=== PATIENT | male | born 1935 | race Caucasian/White ===

== ENCOUNTER 2017-07-09 14:18 | Outpatient (CLI) | payer MEDICARE, BC | END 2017-07-09 14:19 | disposition home or self-care (01) | LOC: LABBT 14:18 | PROVIDERS: ATTEND Neurological Surgery | DX: Z01.818 Encounter for other preprocedural examination (principal); M48.06 Spinal stenosis, lumbar region ==

== ENCOUNTER 2017-07-17 05:28 | Day surgery (SDC) | payer MEDICARE, BC ==
[2017-07-09 14:26] VITALS: BMI 29.8
--- NOTE | 2017-07-16 16:09 | HP ---
HISTORY OF PRESENT ILLNESS: Mr. Olvera is an 81-year-old male referred to us by Dr. Knight's of [facility] for bilateral lower extremity weakness and mostly left lower extremity L5 radicular pain. He h as bilateral hip pain. He has a history of hip replacement on the right and no significant arthropa thy on the left, but his biggest concern is that over the last 6 months, he has essentially lost the ability to walk secondary to weakness in his bilateral legs. He has had [address] Glendy humphrey. He feels like it helped his pain, but this weakness is actually worsening because of that an d he is here for surgical discussion. MRI from [facility] reveals profound central canal s tenosis, mostly at L1-L2, L2-L3, and L3-L4. He has two disk herniations at L3-L4 with inferior migr ation at L4-L5 with superior migration, goes to the right with an impact L3 and L4 nerve roots as we ll as the L5 nerve root, mostly on the right. He also has scattered foraminal stenosis, all these t ogether, I think set well with the symptoms that he describes. PAST MEDICAL HISTORY: Coronary artery disease, hyperlipidemia, depression, anxiety, BPH, hypertensi on, and seasonal allergies. CURRENT MEDICATIONS: Tylenol Extra Strength, aspirin, atorvastatin, Celebrex, citalopram, finasteri de, latanoprost, lisinopril, loratadine, tamsulosin, and tramadol. ALLERGIES: No known drug allergies. PAST SURGICAL HISTORY: Left knee surgery, right hip replacement, bilateral knee replacement, heart surgery, cataract surgery, aortic valve, carotid artery surgery, right shoulder partial replacement. PHYSICAL EXAMINATION: The patient is in a wheelchair. He has 4/5 strength in bilateral hip flexion . He has 5/5 strength in bilateral knee extension. He has 5/5 strength in left knee flexion and 4/ 5 strength in right knee flexion. He has 4/5 strength bilaterally in dorsiflexion of the ankles, th en 5/5 strength in plantarflexion of the ankles. Upper extremities motor strength is fine. ASSESSMENT: Lumbar radiculopathy. PLAN: I discussed the surgical approach with the patient, Dr. Porter then met with the patient and r eviewed his imaging and advocated for a L1-L5 decompression. He explained to the patient the risks, benefits, and alternatives to the procedure. The patient expressed understanding and would like to move forward with surgery as discussed. I do believe that the patient is mentally competent and ca pable of making medical decisions for himself and we will move forward with surgery as discussed.
[2017-07-17] MEDS ORDERED: Clindamycin/D5W 900 mg/50 ml Premix Bag ONE (06:27)
[2017-07-17] MEDS ORDERED: Levofloxacin 500 mg/D5W 100 ml Premix Bag ONE (06:27)
[2017-07-17] MEDS ORDERED: Thrombin 5000 UNITS/5 ML VIAL ONE (06:27)
[2017-07-17] MEDS ORDERED: Phenylephrine 10 MG/NS 250 ML 0 ML ONE (06:47)
[2017-07-17] MEDS ORDERED: Albumin 5% 500 ML ONE (06:47)
[2017-07-17] MEDS ORDERED: Fentanyl 250 MCG/5 ML VIAL ONE (06:57)
[2017-07-17] MEDS ORDERED: ePHEDrine/0.9% NaCl/PF SYRINGE 50 mg/10 ml ONE (07:08)
[2017-07-17] MEDS ORDERED: Lidocaine 2% PF 10 ML AMP (For Epidural Use) ONE (07:08)
[2017-07-17] MEDS ORDERED: Ondansetron HCl/PF 4 MG/2 ML Vial ONE (07:08)
[2017-07-17] MEDS ORDERED: Propofol 200 MG/20 ML VIAL ONE ×2 (07:08)
[2017-07-17] MEDS ORDERED: Glycopyrrolate 0.2 MG/ML 5 ML SYRINGE ONE (07:08)
[2017-07-17] MEDS ORDERED: Vecuronium 10 MG VIAL ONE (07:08)
[2017-07-17] MEDS ORDERED: Dexamethasone 20 MG/5 ML VIAL ONE (07:08)
[2017-07-17] MEDS ORDERED: PHENYLEPHRINE-NS 100 MCG/ML 10 ML SYRINGE ONE (07:08)
[2017-07-17] MEDS ORDERED: Bupivacaine PF 0.5% 30 ML VIAL ONE (07:39)
[2017-07-17] MEDS ORDERED: Diprivan 20 ML ONE (10:01)
[2017-07-17] MEDS ORDERED: Mag-Al 1200 mg/1200 mg/30 ML UDCUP PO PRN (10:05)
[2017-07-17] MEDS ORDERED: diphenhydrAMINE HCl 50 MG/ML 1 ML VIAL IVP PRN (10:05)
[2017-07-17] MEDS ORDERED: Ondansetron HCl/PF 4 MG/2 ML Vial IVP PRN (10:05)
[2017-07-17] MEDS ORDERED: Acetaminophen 325 MG TAB PO PRN (10:05)
[2017-07-17] MEDS ORDERED: tiZANidine HCl 4 MG TAB PO PRN (10:05)
[2017-07-17] MEDS ORDERED: Acetaminophen/Codeine 30-300mg Tablet PO PRN ×2 (10:05)
[2017-07-17 10:10] LABS: Hematocrit 35.8 % (42.0-52.0)
--- NOTE | 2017-07-17 10:31 | OP ---
DATE OF PROCEDURE: 07/17/2017 SURGEON: Perfecto Porter M.D. [employer]EN [employer]AT GRADER: Gabe Oliver PA-C. INDICATION: Pain. DIAGNOSIS: Lumbar stenosis. PROCEDURE PERFORMED: L1 through L5 lumbar decompression. ANESTHESIA: General. TECHNIQUE: The patient was brought into the operating room and placed under general anesthesia. He was flipped from a supine to a prone position on the operating room table. A linear incision was p lanned spanning L1-L5. After prepping and draping and after an appropriate operative pause, the inc ision was created. Soft tissues were swept away from midline. Self-retaining retractors were place d in the wound for optimal exposure. After confirming the appropriate levels, an Adson rongeur was used to remove the spinous process of L2, L3, L4 and the superior half of L5 and the inferior aspect of L1. A high-speed cutting drill bit as well as 2, 3 and 4-mm Kerrisons were then used to perform laminectomies, which extended to encompass the medial aspect of each facet joint. After complete d ecompression, the wound was irrigated. Hemostasis was maintained throughout. The wound was then cl osed in anatomic layers and a pressure dressing was applied. There were no known procedural complic ations.
[2017-07-17] MEDS ORDERED: Fentanyl 100 MCG/2 ML VIAL ONE (10:51)
[2017-07-17] MEDS: Sodium Chloride 0.9% 1,000 ML IV SCH (12:53)
[2017-07-17] MEDS: Clindamycin/D5W 900 MG in Premix Bag 1 BAG IVPB SCH ×2 (14:51→22:19)
[2017-07-17] MEDS ORDERED: Tamsulosin HCl 0.4 MG CAP PO SCH (17:30)
[2017-07-17] MEDS ORDERED: Finasteride 5 MG TAB PO SCH (21:00)
[2017-07-17] MEDS ORDERED: Latanoprost 0.005% Ophth Soln 2.5 ml Bottle EA EYE SCH (21:00)
[2017-07-17] MEDS ORDERED: Atorvastatin Calcium 40 MG TAB PO SCH (21:00)
[2017-07-18] MEDS: Sodium Chloride 0.9% 1,000 ML IV SCH (00:47)
[2017-07-18 04:07] VITALS: BP 110/65; TEMP 98
[2017-07-18] MEDS ORDERED: Tamsulosin HCl 0.4 MG CAP PO SCH (06:00)
[2017-07-18 06:01] LABS: Anion Gap 11 mmol/L (10-20); BUN (Urea Nitrogen) 17 mg/dL (8.4-25.7); Calc. Creatinine Clearance 87 mL/min (70-130); Calcium 8.5 mg/dL (7.8-10.44); Carbon Dioxide 25 mmol/L (23-31); Chloride 101 mmol/L (98-107); Estimated GFR-MDRD Greater than 90
[2017-07-18 06:18] LABS: #Lymphocytes 1.1 thou/uL (1.20-3.40); #Monocytes 0.6 thou/uL (0.11-0.59); #Neutrophils 6.8 thou/uL (1.40-6.50); %Eosinophils 0.2 % (0.0-10.0); %Lymphocytes 12.7 % (21.0-51.0); %Monocytes 6.9 % (0.0-10.0); Hematocrit 32.3 % (42.0-52.0); Mean Platelet Volume 6.8 fL (7.4-10.4); Red Blood Cell (RBC) Count 3.38 mill/uL (4.70-6.10); White Blood Cell (WBC) Count 8.5 thou/uL (4.8-10.8)
[2017-07-18] MEDS ORDERED: Lisinopril 10 MG TAB PO SCH (09:00)
[2017-07-18] MEDS ORDERED: Multivit, Therapeutic 1 TAB PO SCH (09:00)
[2017-07-18] MEDS ORDERED: Loratadine 10 MG TAB PO SCH (09:00)
--- NOTE | 2017-07-18 09:16 | PRG ---
DATE OF SERVICE: 07/18/2017 SUBJECTIVE: Mr. Olvera is now 1 day status post multilevel lumbar decompression. His overnight co urse was uneventful. He is doing very well this morning. We have removed the KATIE drain. He has bee n ambulating. He reports only the anticipated post-surgical back pain. He already notices substant ial improvement in his leg pain. The plan will be to discharge him home today. We already have plans to see him back in our clinic i n about 2 weeks.
--- NOTE | 2017-07-18 11:26 | DIS ---
DATE OF ADMISISON: 07/17/2017 DATE OF DISCHARGE: 07/18/2017 SUBJECTIVE: Mr. Olvera is an 81-year-old man who was admitted to [facility] by Dr. Perfecto Porter on 07/17/2017 and subsequently discharged the following day on 07/18/2017. ADMISSION DIAGNOSIS: Status post lumbar decompression. DISCHARGE DIAGNOSIS: Status post lumbar decompression. HOSPITAL COURSE: Mr. Olvera's hospital course was minimally complicated by some urinary retention issues that had resolved this morning. He has minimal back pain and tolerated the ambulation and coe rgery very well. He still has some residual weakness, which is to be expected after postoper atively, but should improve soon. He has support at home and has a walker that he uses for ambulati on and subsequently discharged home. His incision appears well approximated and dry, no drainage. Steri-Strips are in place. We will remove the drain today and discharge. He was discharged home in good condition with a 2 week postop. This is Gabe Oliver PA-C dictating for Dr. Porter.
== END 2017-07-18 10:33 | disposition home or self-care (01) ==
LOC: SDC 05:28 → SURG A 10:05 → UNDOADMOB 10:05 → SDC 07-18 10:33 → UNDODISOB 07-18 10:33
PROVIDERS: ATTEND Neurological Surgery
PROC: 01NB0ZZ Release Lumbar Nerve, Open Approach (ICD-10-PCS; principal; 2017-07-17)
PROC: 00NY0ZZ Release Lumbar Spinal Cord, Open Approach (ICD-10-PCS; 2017-07-17)
DX: M48.061 Spinal stenosis, lumbar region without neurogenic claudication (principal); I25.10 Atherosclerotic heart disease of native coronary artery without angina pectoris; E78.5 Hyperlipidemia, unspecified; F32.9 Major depressive disorder, single episode, unspecified; F41.9 Anxiety disorder, unspecified; N40.0 Benign prostatic hyperplasia without lower urinary tract symptoms; I10 Essential (primary) hypertension; J30.2 Other seasonal allergic rhinitis; Z79.899 Other long term (current) drug therapy; Z88.0 Allergy status to penicillin; Z98.41 Cataract extraction status, right eye; Z96.641 Presence of right artificial hip joint; Z96.653 Presence of artificial knee joint, bilateral; Z96.611 Presence of right artificial shoulder joint; Z96.1 Presence of intraocular lens; Z95.2 Presence of prosthetic heart valve
CPT/HCPCS: 63017; 76001; 80048; 85014; 85018; 85025; G8978; G8979; P9045; 36415; J1100; J1170; J1956; J2001; J2405; J2704; J3010; J3490; S0020

== ENCOUNTER 2017-07-19 10:42 | Emergency (ER) | payer MEDICARE, BC ==
--- NOTE | 2017-07-19 11:20 | RAD ---
SUPINE VIEW ABDOMEN: HISTORY: Abdominal pain. FINDINGS: Supine view of the abdomen is obtained. A moderate amount of stool is seen in the colon. Multilevel lumbar degenerative disk changes and os teophytes seen. No definite evidence of obstruction or ileus is seen. 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 IMPRESSION: No acute evidence of intraabdominal pathology is seen. POS: [facility]
[2017-07-19 11:44] LABS: Bilirubin Negative (Negative); Blood, Urine Large (Negative); Glucose, Urine (Dipstick) Negative (Negative); Ketone, Urine Negative (Negative); Nitrite Negative (Negative); Protein, Urine (Dipstick) Negative (Neg-Trace); Urobilinogen 0.2 mg/dL (0.2-1.0)
[2017-07-19 11:48] LABS: Bacteria/HPF Rare-Few HPF (None Seen); RBC/HPF 21-50 HPF (0-3); Squamous Epithelial None Seen HPF (0-3); WBC/HPF None Seen HPF (0-3)
== END 2017-07-19 12:00 | disposition home or self-care (01) ==
LOC: SCSER 10:42
DX: N99.89 Other postprocedural complications and disorders of genitourinary system (principal); N40.1 Benign prostatic hyperplasia with lower urinary tract symptoms; R33.8 Other retention of urine; E78.5 Hyperlipidemia, unspecified; I10 Essential (primary) hypertension; Z79.82 Long term (current) use of aspirin; Z79.899 Other long term (current) drug therapy
CPT/HCPCS: 51702; 74000; 81003; 81015